=== PATIENT | male | born 1995 | race Caucasian/White ===

== ENCOUNTER 2021-01-02 18:10 | Emergency (ER) | payer OTHER ==
[2021-01-02 18:19] VITALS: BP 130/87
--- NOTE | 2021-01-02 19:05 | ED Physician Documentation ---
History of Present Illness - Stated complaint Stated Complaint: VACCINE RXN - Chief complaint Chief Complaint: Allergic Rx - Additonal information Additional information: 25-year-old male presents emergency department for evaluation of loss of taste and smell that began acutely this afternoon and about 30 minutes after receiving the COVID-19 vaccination. He has no cough, fevers congestion. 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 He reports that for lunch he ate pizza rolls and drank milk and could taste that but then about 30 minutes after getting the Covid vaccine he was going to eat and could no longer taste. Review of Systems Constitutional: denies: Fever, Chills Eyes: denies: Loss of vision Ears: reports: Other (Loss of taste and smell). denies: Loss of hearing, Ear pain Nose: denies: Congestion Throat: reports: Reviewed and negative Cardiac: reports: Reviewed and negative Respiratory: reports: Reviewed and negative GI: reports: Reviewed and negative : reports: Reviewed and negative Skin: reports: Reviewed and negative Musculoskeletal: reports: Reviewed and negative PD PAST MEDICAL HISTORY - Past Medical History Past Medical History: No - Past Surgical History Past Surgical History: No - Present Medications Home Medications: Ambulatory Orders Medication Instructions Recorded Confirmed No Known Home Medications 01/02/21 01/02/21 - Allergies Allergies/Adverse Reactions: Allergies Allergy/AdvReac Type Severity Reaction Status Date / Time No Known Drug Allergies Allergy Verified 01/02/21 18:19 - Social History Does the pt smoke?: No Smoking Status: Never smoker Does the pt drink ETOH?: Yes Does the pt have substance abuse?: No - Immunizations Immunizations are current?: Yes - POLST Patient has POLST: No PD ED PE NORMAL - General General: Alert and oriented X 3, No acute distress, Well developed/nourished - HEENT HEENT: PERRL, Ears normal, Moist mucous membranes, Pharynx benign - Neck Neck: Supple, no meningeal sign, No bony TTP, No adenopathy - Cardiac Cardiac: RRR, No murmur - Respiratory Respiratory: No respiratory distress - Abdomen Abdomen: Normal bowel sounds, Soft Results - Vitals Vitals: Vital Signs - 24 hr 01/02/21 18:17 Temperature 37.6 C Heart Rate 82 Respiratory 18 Rate Blood Pressure 130/87 H O2 Saturation 98 Oxygen O2 Source Room air PD MEDICAL DECISION MAKING - ED course Complexity details: d/w patient ED course: Well-appearing 25-year-old male presents emergency department for acute loss of taste and smell that occurred this afternoon after receiving his COVID-19 vaccine. However I do not suspect that this is a vaccine related reaction rather I do suspect possible COVID-19 infection. Screening is pending. His overall exam and evaluation is otherwise unremarkable. Patient advised to remain in quarantine until results are known. Emergent return precautions were discussed. Departure - Departure Disposition: Home, Self Care Clinical Impression: Loss of taste, Encounter for screening for COVID-19 Condition: Stable Record reviewed to determine appropriate education?: Yes Comments: You have a Covid test pending. You need to self quarantine until the result is done and negative. Do not leave your house. Do not get near anybody. The results should be done in 48 to 72 hours. We will call with a positive result, the fastest way to get a negative result for confirmation though is to go to the hospital website at [email or web address], click on the my [employer] tab and sign up for the patient portal. If any friends or family get sick and would like to have a Covid test done, but do not have signs or symptoms that would necessitate being hospitalized, we encourage testing through our coronavirus swabbing station, call [phone] to schedule an appointment.
== END 2021-01-02 19:08 | disposition home or self-care (01) ==
LOC: ED 18:10
DX: R43.8 Other disturbances of smell and taste (principal); Z20.822 Contact with and (suspected) exposure to COVID-19
CPT/HCPCS: 99282; 99283

== ENCOUNTER 2021-07-21 21:13 | Emergency (ER) | payer OTHER ==
--- NOTE | 2021-07-21 21:57 | ED Physician Documentation ---
PD HPI LOWER EXT INJURY - Stated complaint Stated Complaint: L FOOT INJURY - Chief complaint Chief Complaint: Trauma Ext - History obtained from History obtained from: Patient - Additional information Additional information: 26yo male presents with L foot injury happening 1630 today while at work ([employer]). A heavy piece of material was slid over top of the foot. Throbbing pain increased with walking. But able to ambulate. Review of Systems Constitutional: reports: Reviewed and negative Eyes: reports: Reviewed and negative Throat: reports: Reviewed and negative Cardiac: reports: Reviewed and negative Respiratory: reports: Reviewed and negative PD PAST MEDICAL HISTORY - Past Surgical History Past Surgical History: No - Present Medications Home Medications: Ambulatory Orders Medication Instructions Recorded Confirmed No Known Home Medications 01/02/21 07/21/21 - Allergies Allergies/Adverse Reactions: Allergies Allergy/AdvReac Type Severity Reaction Status Date / Time No Known Drug Allergies Allergy Verified 07/21/21 21:16 - Social History Does the pt smoke?: No Smoking Status: Never smoker Does the pt drink ETOH?: Yes Does the pt have substance abuse?: No - Immunizations Immunizations are current?: Yes - POLST Patient has POLST: No PD ED PE NORMAL - Vitals Vital signs reviewed: Yes - General General: Alert and oriented X 3, No acute distress - Extremities Extremities: Other (Tender to the proximal dorsal forefoot with some abrasion there. No painful range of motion evident on exam.) - Neuro Neuro: Alert and oriented X 3, Normal speech Results - Vitals Vitals: Vital Signs - 24 hr 07/21/21 07/21/21 21:17 22:11 Temperature 37.0 C 37.2 C Heart Rate 78 82 Respiratory 16 18 Rate Blood Pressure 154/78 H 138/90 H O2 Saturation 99 98 Oxygen O2 Source Room air - Rads (name of study) 3v XR L foot normal Radiology: EMP read contemporaneously Departure - Departure Disposition: 01 Home, Self Care Clinical Impression: Crushing injury of foot, left Qualifiers: Encounter type: initial encounter Qualified Code(s): S97.82XA - Crushing injury of left foot, initial encounter Condition: Good Record reviewed to determine appropriate education?: Yes Instructions: ED Contusion Foot Comments: [place], return for new or worsening symptoms. Discharge Date/Time: 07/21/21 22:24
--- NOTE | 2021-07-21 22:12 | XRAY Report ---
PROCEDURE: Foot 3 View LT INDICATIONS: Trauma TECHNIQUE: 3 views of the foot were acquired. COMPARISON: None FINDINGS: Bones: No fractures or dislocations. No suspicious bony lesions. Soft tissues: No tibiotalar joint effusion. Achilles tendon appears normal. IMPRESSION: No acute abnormality of the left foot. Reviewed by: Tristan Duncan on 07/21/2021 10:10 PM [email or web address] Approved by: Tristan Duncan on 07/21/2021 10:10 PM [facility] [place] Station ID: [id number]
[2021-07-21 22:13] VITALS: BP 138/90
== END 2021-07-21 22:24 | disposition home or self-care (01) ==
LOC: ED 21:13
DX: S97.82XA Crushing injury of left foot, initial encounter (principal); S90.812A Abrasion, left foot, initial encounter; W22.8XXA Striking against or struck by other objects, initial encounter; Y92.139 Unspecified place military base as the place of occurrence of the external cause; Y99.1 Military activity
CPT/HCPCS: 99282; 99283